=== PATIENT | female | born 1985 | race Caucasian/White ===

== ENCOUNTER 2016-05-18 07:06 | Day surgery (SDC) | payer OTHER ==
[2016-05-13 14:48] VITALS: BMI 32.5
--- NOTE | 2016-05-18 06:36 | HP ---
History & Physical Update - History History: No Change - Physical Physical: No Change - Assessment Assessment: No Change - Plan Plan: No Change
[~2016-05-18 07:06] MED LIST: IBUPROFEN 800 MG/8 ML IJ IVPB PRN; LACTATED RINGERS SOLUTION 1,000 ML IV SCH
[2016-05-18] MEDS ORDERED: SODIUM CHLORIDE 0.9% P/F 10 ML VIAL IJ ONE (07:57)
[2016-05-18] MEDS ORDERED: KETOROLAC TROMETHAMINE 30 MG/1 ML VIAL ONE (07:57)
[2016-05-18] MEDS ORDERED: ceFAZolin SODIUM 1 GM VIAL ONE (07:57)
[2016-05-18] MEDS ORDERED: DEXAMETHASONE SOD PHOSPHATE 4 MG/1 ML VIAL ONE (07:57)
[2016-05-18] MEDS ORDERED: SUCCINYLCHOLINE CHLORIDE 200 MG/10 ML VIAL ONE (07:58)
[2016-05-18] MEDS ORDERED: PHENYLEPHRINE HCL 10 MG/1 ML SINGLE DOSE VIAL ONE (07:58)
[2016-05-18] MEDS ORDERED: PROPOFOL 20 ML ONE ×2 (07:58)
[2016-05-18] MEDS ORDERED: MIDAZOLAM HCL 2 MG/2 ML SINGLE DOSE VIAL ONE (07:58)
[2016-05-18] MEDS ORDERED: ROCURONIUM BROMIDE 50 MG/5 ML VIAL ONE (07:58)
[2016-05-18] MEDS ORDERED: ePHEDrine SULFATE 50 MG/1 ML AMPULE ONE (07:59)
[2016-05-18] MEDS ORDERED: LIDOCAINE HCL 2% (20ML MULTI-DOSE VIAL) NR ONE (08:06)
[2016-05-18] MEDS ORDERED: DESFLURANE GAS 240 ML BOTTLE IH ONE (08:06)
[2016-05-18] MEDS ORDERED: ceFAZolin SODIUM 1 GM VIAL IVPB ONE (08:43)
[2016-05-18] MEDS ORDERED: ONDANSETRON 4 MG/2 ML VIAL IVPUSH PRN (09:11)
[2016-05-18] MEDS ORDERED: PROMETHAZINE HCL 25 MG/1 ML VIAL IVPUSH PRN (09:11)
[2016-05-18] MEDS ORDERED: LACTATED RINGERS SOLUTION 1,000 ML IV SCH (09:15)
[2016-05-18] MEDS ORDERED: NEOSTIGMINE METHYLSULFATE 0.5 MG/ML - 10 ML MDV ONE (09:40)
[2016-05-18] MEDS ORDERED: GLYCOPYRROLATE 0.2 MG/1 ML VIAL ONE (09:40)
[2016-05-18 12:10] VITALS: TEMP 97.6
[2016-05-18] MEDS ORDERED: oxyCODONE HCL 5 MG TABLET PO PRN (12:46)
[2016-05-18] MEDS ORDERED: oxyCODONE HCL 5 MG TABLET ONE (12:49)
--- NOTE | 2016-05-18 13:01 | OP ---
Operative Note - Note: Operative Date: 05/18/16 Pre-Operative Diagnosis: ovarian cyst. pelvic pain Operation: Robotic Laparoscopic bilateral ovarian cystectomy Findings: left corpus leuteal cyst right simple cyst Post-Operative Diagnosis: Same as Pre-op Surgeon: Ree Evans Compliance Representative: Leticia Carlos Anesthesia: General Specimens Removed: bilateral ovarian cyst Estimated Blood Loss (mls): 20 Operative Report Dictated: Yes
[2016-05-18 15:00] VITALS: BP 121/72; PULSE 53
--- NOTE | 2016-05-19 14:05 | PATH ---
Surgical Pathology Report Patient Name: LUNA BURNS [facility]. Rec. #: [id number] /Age/Gender: 1985 (Age: 30) / F Account: [id number] Location: [facility] SURGICAL Taken: 05/18/2016 Received: 05/18/2016 Reported: 05/19/2016 Physicians: Ree Evans M.D. Specimen(s) Received A: LEFT OVARIAN CYST B: RIGHT OVARIAN CYST Clinical History Ovarian cyst/pelvic pain Final Diagnosis A. OVARY, LEFT, CYSTECTOMY: BENIGN HEMORRHAGIC CYST WITH FEATURES OF LUTEINIZED FOLLICULAR CYST. B. OVARY, RIGHT, CYSTECTOMY: CONSISTENT WITH CORPUS LUTEUM CYST. Electronically Signed Varun Rocha M.D. Gross Description A. Received in formalin, labeled "left ovarian cyst" is a 3.5 x 1.5 x 0.3 cm schaeffer brown to red, irregular portion of soft tissue, consistent with a disrupted cystic structure. The specimen is serially sectioned and entirely submitted in 2 cassettes. B. Received in formalin, labeled "right ovarian cyst" a 1.1 x 0.8 x 0.3 cm pink-schaeffer, irregular portion of soft tissue, consistent with a disrupted cystic structure. The specimen is submitted in toto in one cassette. 05/18/201605/18/2016
--- NOTE | 2016-05-27 07:54 | OP ---
DATE OF OPERATION: 05/18/2016 PREOPERATIVE DIAGNOSIS: Ovarian cyst, pelvic pain. OPERATION: Robotic laparoscopic bilateral ovarian cystectomy. SURGEON: Danielle Evans MD SOFTWARE DEVELOPER CONSULTANT: Leticia Carlos MD PROCEDURE: Patient was taken to the operating room, placed in dorsal lithotomy position, prepped and draped in the usual sterile fashion. A time-out was performed in accordance with hospital regulations. Attention was then drawn to the umbilicus, where an 8-mm umbilical incision was made. Veress needle was inserted into the cavity. Approximately 3-4 L of CO2 was insufflated into the cavity. Veress needle was then removed, and an 8-mm trocar was inserted. Laparoscope and camera were attached. Visualization revealed bilateral ovarian cysts. Trocars were inserted, 2 on the left, 1 lower than then umbilicus and 1 higher. The airseal cannula was inserted in the upper abdomen. Two 8-mm trocars were inserted on the right 8 cm apart. Under direct visualization, an incision was then made and trocars were inserted without injury to the underlying viscera. The da Latha Robot was then side- docked to the patients abdomen and attached. Laparoscopic camera was then visualized and instruments were inserted. Bipolar grasper and EndoShears were then inserted. Ovarian cysts were grasped on the right, and EndoShears were then used to enter the cyst, and cystectomy was then performed. Cysts were then removed by direct blunt and sharp dissection. The same procedure was repeated on the right. The left appeared to have corpus luteal cyst, the right had a simple cyst. The same procedure was repeated on the right side. Cautery of the cysts was done, and the cysts were then removed from the ovary using direct sharp technique, and both cysts were then removed and submitted to Pathology. Hemostasis was achieved. All instruments were then removed. CO2 was removed from the abdomen. Incisions were then closed using 4-0 Biosyn in a subcuticular fashion. Wounds were washed and dressed. Patient tolerated the procedure well, was taken to Recovery in stable condition. DANIELLE EVANS M.D. [id number] MTDD
== END 2016-05-18 15:15 | disposition home or self-care (01) ==
LOC: JASU-SURG 07:06
PROVIDERS: ATTEND Obstetrics & Gynecology
PROC: 8E0W4CZ Robotic Assisted Procedure of Trunk Region, Percutaneous Endoscopic Approach (ICD-10-PCS; 2016-05-18)
PROC: 0UB24ZZ Excision of Bilateral Ovaries, Percutaneous Endoscopic Approach (ICD-10-PCS; principal; 2016-05-18 08:30)
DX: N83.291 Other ovarian cyst, right side (principal); N83.12 Corpus luteum cyst of left ovary
CPT/HCPCS: 58662; S2900; 36415; 82947; 84703; 86850; 86900; 86901; 88305-TC; 94760

== ENCOUNTER 2017-06-10 14:17 | Emergency (ER) | payer OTHER ==
--- NOTE | 2017-06-10 14:31 | PDOC ---
Rapid Medical Evaluation Time Seen by Provider: 06/10/17 14:30 Medical Evaluation: Allergies Allergy/AdvReac Type Severity Reaction Status Date / Time No Known Allergies Allergy Verified 12/14/15 07:09 06/10/17 14:31 31 year old female with history of IDDM and HTN with sudden onset of dizziness at 10am today. Vomiting in triage. Reports FS 98 this morning, has not re- checked since then. Denies pain other than toothache for which she took 2 tablets of Motrin this morning. V/s on arrival notable for: BP 167/116 (did take meds this morning) P 101 Fingerstick blood glucose Labs including CBC, CMP, acetone, VBG, serum (menstrual period "due today"), UA IVF Zofran 8mg IVPB To Main ED for further evaluation Discharge Disposition - Referrals Referrals: Danielle Alvarez MD [Primary Care Provider] - - Patient Instructions - Post Discharge Activity
[2017-06-10] MEDS ORDERED: SODIUM CHLORIDE 1,000 ML IV STA (14:33)
[2017-06-10] MEDS ORDERED: ONDANSETRON 4 MG/2 ML VIAL IVPB ONE (14:34)
[2017-06-10 14:36] VITALS: BMI 36.6
[2017-06-10 15:03] LABS: BASO % 0.7 % (0-2.0); EOS % 1.8 % (0-4.5); HEMATOCRIT 40.2 % (32.4-45.2); HEMOGLOBIN 12.4 GM/dL (10.7-15.3); LYMPH % 30.4 % (8-40); MCH 21.1 pg (25.7-33.7); MEAN PLT VOLUME 7.9 fl (7.5-11.1); MONO % 5.9 % (3.8-10.2); NEUT % 61.2 % (42.8-82.8); PLATELET COUNT 259 K/MM3 (134-434); RBC 5.91 M/mm3 (3.60-5.2); RDW 14.9 % (11.6-15.6); WHITE BLOOD COUNT 10.4 K/mm3 (4.0-10.0)
[2017-06-10 15:08] LABS: ADD RBC MORPHOLOGY YES
--- NOTE | 2017-06-10 15:33 | PDOC ---
History of Present Illness - General Chief Complaint: Lightheaded Stated Complaint: DIZZINESS Time Seen by Provider: 06/10/17 14:30 History Source: Patient Exam Limitations: No Limitations - History of Present Illness Initial Comments: CHIEF COMPLAINT: 31 y/o afebrile female with PMH IDDM, HTN c/o dizziness today. 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 She states it felt like the room was spinning around her. She states when she is dizzy she does feel nauseous. Her only other complaint is that she's had a toothache for the past few days and admits she needs a toothache. She denies f/c, cough, SCHILLNIG, changes in vision/hearing, CP , SOB, abd pain, v/d, dysuria. She did check her sugar today and it was 95. She has taken all of her medications today as well. Vital signs on arrival are notable for pulse of 106 and BP of 167/116. REVIEW OF SYSTEMS: GENERAL/CONSTITUTIONAL: No fever/chills. No weakness. No weight change. HEAD, EYES, EARS, NOSE AND THROAT: +left bottom toothache. No change in vision. No ear pain or discharge. No sore throat. CARDIOVASCULAR: No chest pain or shortness of breath. RESPIRATORY: No cough, wheezing, or hemoptysis. GASTROINTESTINAL: +nausea. GENITOURINARY: No dysuria, frequency, or change in urination. MUSCULOSKELETAL: No joint or muscle swelling or pain. No neck or back pain. SKIN: No rash or easy bruising. NEUROLOGIC: No headache, vertigo, loss of consciousness, or loss of sensation. PHYSICAL EXAM: GENERAL: The patient is awake, alert, and fully oriented, in no acute distress. She is well appearing and pleasant. HEAD: Normal with no signs of trauma. ENT: Pupils equal, round and reactive to light, extraocular movements intact, sclera anicteric, conjunctiva clear. No photophobia. No nystagmus. LUNGS: Clear to auscultation bilaterally. Normal excursion. No respiratory distress or use of accessory muscles. CV: RRR, S1/S2, no MRG. Cap refill < 2 sec. ABDOMEN: Soft, non-distended, non-tender even to deep palpation, no hepatomegaly or splenomegaly, no masses. EXTREMITIES: Normal range of motion, no edema. NEUROLOGICAL: Normal speech, normal gait. CN II-XII grossly intact. Dizziness reproduced with rapid head movement from side to side, worse when turned towards left side. SKIN: Warm, dry, normal turgor, no rashes or lesions noted. Past History - Past Medical History Allergies/Adverse Reactions: Allergies Allergy/AdvReac Type Severity Reaction Status Date / Time No Known Allergies Allergy Verified 06/10/17 14:36 Home Medications: Ambulatory Orders Insulin Glargine,Hum.rec.anlog [Lantus Solostar PEN -] 28 units SQ ACHS Lisinopril [Prinivil] 20 mg PO BID 12/14/15 Insulin Lispro [Humalog] 12 unit SQ BID 05/13/16 Cholecalciferol (Vitamin D3) [Vitamin D3] 50,000 unit PO WEEKLY 05/18/16 Ibuprofen [Motrin -] 600 mg PO QID PRN #28 tablet 05/18/16 Meloxicam [Mobic (Nf) -] 15 mg PO DAILY 05/18/16 Pramipexole Di-HCl [Mirapex] 0.25 mg PO BID 05/18/16 Topiramate 50 mg PO BID 05/18/16 COPD: No Diabetes: Yes HTN: Yes - Immunization History Immunization Up to Date: Yes - Suicide/Smoking/Psychosocial Hx Smoking History: Never smoked Have you smoked in the past 12 months: No Information on smoking cessation initiated: No Hx Alcohol Use: No Drug/Substance Use Hx: No Substance Use Type: None Hx Substance Use Treatment: No *Physical Exam - Vital Signs Last Vital Signs Temp Pulse Resp BP Pulse Ox 106 H 22 167/116 100 06/10/17 14:31 06/10/17 14:31 06/10/17 14:31 06/10/17 14:31 ED Treatment Course - LABORATORY CBC & Chemistry Diagram: 06/10/17 14:58 06/10/17 14:58 - ADDITIONAL ORDERS Additional order review: Laboratory Results 06/10/17 14:58 Serum , Qual Negative 06/10/17 14:58 RBC 5.91 H MCV 68.0 L MCHC 31.0 L RDW 14.9 MPV 7.9 Neutrophils % 61.2 Lymphocytes % 30.4 D Monocytes % 5.9 Eosinophils % 1.8 Basophils % 0.7 Medical Decision Making - Medical Decision Making A/P: 31 y/o afebrile female with dizziness today. patient has had 2 days of toothache. She is a business controller. Suspect vertigo but will check labs and EKG given her PMH. Plan is as follows: 1. EKG 2. Labs 3. PO Meclizine 4. UA 5. Serum Glucose - 385 Ordered IV fluids and 10 units of insulin Ordered 50mg of Meclizine The patient states she feels better...not dizzy anymore but her head feels "heavy". Will give 2nd bag of IV fluids and another 25mg of meclizine Will draw repeat CMP to check glucose level I am signing this patient out to my colleague: ARIC Ventura In brief, this patient is being seen in the ED for a chief complaint of: dizziness I have completed the initial assessment interview note and have ordered: labs, EKG, UA I have reviewed the following results: all Pending results are: repeat CMP Please call the PCP: Dr. Alvarez Plan for disposition is as follows: Please allow fluids to finish, check glucose level on repeat CMP and reassess patient status. *DC/Admit/Observation/Transfer Diagnosis at time of Disposition: Hyperglycemia, Dizziness, Vertigo - Referrals Referrals: Danielle Alvarez MD [Primary Care Provider] - - Patient Instructions - Post Discharge Activity
[2017-06-10 15:37] LABS: ALBUMIN 3.6 g/dl (3.4-5.0); ANION GAP 7 (8-16); BILIRUBIN,TOTAL 0.2 mg/dL (0.2-1.0); BLOOD UREA NITROGEN 13 mg/dL (7-18); CALCIUM 8.4 mg/dL (8.5-10.1); CHLORIDE 102 mmol/L (98-107); CO2 26 mmol/L (21-32); POTASSIUM 4.2 mmol/L (3.5-5.1); SGOT/AST 7 U/L (15-37); SGPT/ALT 23 U/L (12-78); SODIUM 135 mmol/L (136-145)
[2017-06-10 15:38] LABS: ALK PHOS 158 U/L (45-117)
[2017-06-10 15:41] LABS: GLUCOSE,RANDOM 385 mg/dL (74-106)
[2017-06-10] MEDS ORDERED: MECLIZINE HCL 25 MG TABLET (FP) PO ONE ×2 (15:50→17:53)
[2017-06-10 16:01] LABS: VENOUS PC02 37.3 mmHg (38-52); VENOUS PH 7.43 (7.32-7.42); VENOUS PO2 96.7 mmHg (28-48)
[2017-06-10] MEDS ORDERED: INSULIN REGULAR HUMAN 100 UNITS/ML *VIAL SQ ONE (16:01)
[2017-06-10] MEDS ORDERED: SODIUM CHLORIDE 250 ML IV ONE (16:02)
[2017-06-10] MEDS ORDERED: SODIUM CHLORIDE 250 ML IV STA ×3 (16:02→16:03)
[2017-06-10] MEDS ORDERED: ONDANSETRON 4 MG/2 ML VIAL ONE (16:37)
[2017-06-10] MEDS ORDERED: MECLIZINE HCL 25 MG TABLET (FP) ONE ×2 (16:37→17:54)
[2017-06-10] MEDS ORDERED: INSULIN REGULAR HUMAN 100 UNITS/ML *VIAL ONE (16:47)
[2017-06-10 17:08] LABS: URINE APPEARANCE CLEAR; URINE BILIRUBIN NEGATIVE (NEGATIVE); URINE BLOOD NEGATIVE (NEGATIVE); URINE COLOR COLORLESS; URINE GLUCOSE (UA) 3+ (NEGATIVE); URINE KETONE NEGATIVE (NEGATIVE); URINE LEUK ESTERASE NEGATIVE (NEGATIVE); URINE NITRITE NEGATIVE (NEGATIVE); URINE PROTEIN NEGATIVE (NEGATIVE); URINE UROBILINOGEN NEGATIVE mg/dL (0.2-1.0)
[2017-06-10] MEDS ORDERED: IBUPROFEN 100 MG/5 ML UNIT DOSE CUPS PO ONE (17:59)
[2017-06-10] MEDS ORDERED: IBUPROFEN 600 MG TABLET (FP) PO ONE (18:53)
[2017-06-10 19:18] VITALS: BP 154/94; PULSE 77; TEMP 98.7
--- NOTE | 2017-06-10 19:32 | PDOC ---
*Physical Exam - Vital Signs Last Vital Signs Temp Pulse Resp BP Pulse Ox 98.7 F 77 16 154/94 99 06/10/17 18:00 06/10/17 18:00 06/10/17 18:00 06/10/17 18:00 06/10/17 18:00 - Physical Exam General Appearance: Yes: Nourished, Appropriately Dressed. No: Apparent Distress Neurologic: positive: youth ministry director II-XII NML intact, Fully Oriented, Alert, Normal Mood/ Affect, Normal Response, Motor Strength 09/11 ED Treatment Course - LABORATORY CBC & Chemistry Diagram: 06/10/17 14:58 06/10/17 21:20 - ADDITIONAL ORDERS Additional order review: Laboratory Results 06/10/17 06/10/17 06/10/17 16:33 14:58 14:58 VBG pH 7.43 H POC VBG pCO2 37.3 L POC VBG pO2 96.7 H D Mixed VBG HCO3 24.4 Sodium Potassium Chloride Carbon Dioxide Anion Gap BUN Creatinine Creat Clearance w eGFR Random Glucose Calcium Total Bilirubin AST ALT Alkaline Phosphatase Total Protein Albumin Serum , Qual Urine Color Colorless Urine Appearance Clear Urine pH 6.0 Ur Specific [place] 1.024 Urine Protein Negative Urine Glucose (UA) 3+ H Urine Ketones Negative Urine Blood Negative Urine Nitrite Negative Urine Bilirubin Negative Urine Urobilinogen Negative Ur Leukocyte Esterase Negative Acetone, Qual Negative L 06/10/17 06/10/17 14:58 14:58 VBG pH POC VBG pCO2 POC VBG pO2 Mixed VBG HCO3 Sodium 135 L Potassium 4.2 Chloride 102 Carbon Dioxide 26 Anion Gap 7 L BUN 13 Creatinine 1.0 Creat Clearance w eGFR > 60 Random Glucose 385 H* Calcium 8.4 L Total Bilirubin 0.2 D AST 7 L ALT 23 Alkaline Phosphatase 158 H Total Protein 7.0 Albumin 3.6 Serum , Qual Negative Urine Color Urine Appearance Urine pH Ur Specific [place] Urine Protein Urine Glucose (UA) Urine Ketones Urine Blood Urine Nitrite Urine Bilirubin Urine Urobilinogen Ur Leukocyte Esterase Acetone, Qual 06/10/17 14:58 RBC 5.91 H MCV 68.0 L MCHC 31.0 L RDW 14.9 MPV 7.9 Neutrophils % 61.2 Lymphocytes % 30.4 D Monocytes % 5.9 Eosinophils % 1.8 Basophils % 0.7 - Medications Given in the ED: ED Medications Discontinued Medications Generic Name Dose Route Start Last Admin Trade Name Freq PRN Reason Stop Dose Admin Sodium Chloride 1,000 mls @ 1,000 mls/hr 06/10/17 14:33 06/10/17 16:37 Normal Saline - IV 06/10/17 15:32 1,000 mls/hr ASDIR STA Administration Sodium Chloride 250 mls @ 500 mls/hr 06/10/17 16:02 06/10/17 17:47 Normal Saline - IV 06/10/17 16:31 500 mls/hr NOW ONE Administration Sodium Chloride 250 mls @ 500 mls/hr 06/10/17 16:02 06/10/17 17:09 Normal Saline - IV 06/10/17 16:31 500 mls/hr ASDIR STA Administration Sodium Chloride 250 mls @ 500 mls/hr 06/10/17 16:03 06/10/17 17:47 Normal Saline - IV 06/10/17 16:32 500 mls/hr ASDIR STA Administration Sodium Chloride 250 mls @ 500 mls/hr 06/10/17 16:03 06/10/17 17:47 Normal Saline - IV 06/10/17 16:32 500 mls/hr ASDIR STA Administration Ibuprofen 600 mg 06/10/17 17:59 06/10/17 18:56 Motrin Oral Suspension - PO 06/10/17 18:00 600 mg ONCE ONE Administration Insulin Human Regular 10 units 06/10/17 16:01 06/10/17 16:50 Novolin R Vial *For Ivpush Or Iv Drip Only* SQ 06/10/17 16:02 10 unit ONCE ONE Administration Meclizine HCl 50 mg 06/10/17 15:50 06/10/17 16:38 Antivert - PO 06/10/17 15:51 50 mg ONCE ONE Administration Meclizine HCl 25 mg 06/10/17 17:53 06/10/17 18:12 Antivert - PO 06/10/17 17:54 25 mg ONCE ONE Administration Ondansetron HCl 8 mg 06/10/17 14:34 06/10/17 16:37 Zofran Injection IVPB 06/10/17 14:35 8 mg ONCE ONE Administration Medical Decision Making - Medical Decision Making 06/10/17 21:08 Sign out received from Alexa CORBETT. Pt. finished second bolus of fluids for an elevated blood glucose on presentation. Pt. reports the dizziness has subsided and reports that her head feels a little heavy. Repeat finger stick now shows a glucose of 118. Pt. is a business intelligence engineer. Will give work note and send home with rx of meclizine and zofran for symptomatic treatment. 06/10/17 22:29 No gap on repeat CMP *DC/Admit/Observation/Transfer Diagnosis at time of Disposition: Hyperglycemia, Dizziness, Vertigo - Discharge Dispostion Disposition: HOME Condition at time of disposition: Stable Admit: No - Prescriptions Prescriptions: Meclizine HCl 25 mg PO TID #21 tablet Ondansetron [Zofran Odt -] 4 mg SL TID #21 od.tablet - Referrals Referrals: Danielle Alvarez MD [Primary Care Provider] - - Patient Instructions Printed Discharge Instructions: Benign Paroxysmal Positional Vertigo Additional Instructions: You have vertigo. Please take meclizine 25 mg every 8 hours to help with the dizziness. If you feel nauseous you may take Zofran every 8 hours as well. The Bakari maneuver may help to correct your symptoms. Please drink plenty of fluids and get plenty of rest. Do not drive while you experience the vertigo as it can create unsafe conditions. You have been given a work note. Please follow-up with Dr. rhoades this week. Return to the emergency department if you have worsening dizziness, fevers, difficulty walking, or any changes in your symptoms. - Post Discharge Activity Forms/Work/School Notes: Back to Work
[2017-06-10 19:49] LABS: ANISOCYTOSIS 1+
[2017-06-10 19:50] LABS: PLATELET ESTIMATE ADEQUATE
[2017-06-10 22:05] LABS: ALBUMIN 3.3 g/dl (3.4-5.0); ANION GAP 7 (8-16); BLOOD UREA NITROGEN 11 mg/dL (7-18); CALCIUM 7.6 mg/dL (8.5-10.1); CHLORIDE 108 mmol/L (98-107); CO2 26 mmol/L (21-32); GLUCOSE,RANDOM 100 mg/dL (74-106); SODIUM 141 mmol/L (136-145)
[2017-06-10 22:08] LABS: ALK PHOS 134 U/L (45-117); BILIRUBIN,TOTAL 0.4 mg/dL (0.2-1.0); CREATININE 0.7 mg/dL (0.55-1.02); SGOT/AST 8 U/L (15-37); SGPT/ALT 22 U/L (12-78); TOT PROT 6.2 g/dl (6.4-8.2)
--- NOTE | 2017-06-11 10:06 | EKG ---
Test Reason : Blood Pressure : / mmHG Vent. Rate : 078 BPM Atrial Rate : 078 BPM P-R Int : 134 ms QRS Dur : 084 ms QT Int : 396 ms P-R-T Axes : 051 006 011 degrees QTc Int : 451 ms NORMAL SINUS RHYTHM POSSIBLE LEFT ATRIAL ENLARGEMENT LEFT VENTRICULAR HYPERTROPHY NONSPECIFIC T WAVE ABNORMALITY ABNORMAL ECG WHEN COMPARED WITH ECG OF 14-DEC-2015 07:32, VENT. RATE HAS DECREASED BY 48 BPM Confirmed by ROBBY THOMAS MD ([id number]) on 06/11/2017 10:06:17 AM Referred By: Confirmed By:ORBBY THOMAS MD
== END 2017-06-10 22:59 | disposition home or self-care (01) ==
LOC: JER 14:17
PROC: 3E0337Z Introduction of Electrolytic and Water Balance Substance into Peripheral Vein, Percutaneous Approach (ICD-10-PCS; principal; 2017-06-10)
PROC: 3E033GC Introduction of Other Therapeutic Substance into Peripheral Vein, Percutaneous Approach (ICD-10-PCS; 2017-06-10)
PROC: 3E013VG Introduction of Insulin into Subcutaneous Tissue, Percutaneous Approach (ICD-10-PCS; 2017-06-10)
DX: E11.65 Type 2 diabetes mellitus with hyperglycemia (principal); Z79.4 Long term (current) use of insulin; I10 Essential (primary) hypertension
CPT/HCPCS: 36415; 80053; 81003; 82009; 82803; 82962; 84703; 85025; 93005; 93010; 99284-25

== ENCOUNTER 2018-04-04 13:18 | Emergency (ER) | payer OTHER ==
[2018-04-04 13:27] VITALS: BP 172/99; PULSE 90; TEMP 98.2; BMI 36.6
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
[2018-04-04] MEDS ORDERED: CYCLOBENZAPRINE HCL 10 MG TABLET (FP) PO ONE (14:43)
[2018-04-04] MEDS ORDERED: KETOROLAC TROMETHAMINE 60 MG/2 ML VIAL IM ONE (14:43)
[2018-04-04] MEDS ORDERED: KETOROLAC TROMETHAMINE 60 MG/2 ML VIAL ONE (14:52)
[2018-04-04] MEDS ORDERED: CYCLOBENZAPRINE HCL 10 MG TABLET (FP) ONE (14:52)
[2018-04-04 15:09] LABS: URINE APPEARANCE CLEAR; URINE BILIRUBIN NEGATIVE (<2.0 mg/dL); URINE COLOR STRAW; URINE GLUCOSE (UA) 2+ (NEGATIVE); URINE KETONE NEGATIVE (NEGATIVE); URINE LEUK ESTERASE 1+ (NEGATIVE); URINE NITRITE NEGATIVE (NEGATIVE); URINE PROTEIN NEGATIVE (NEGATIVE); URINE UROBILINOGEN NEGATIVE mg/dL (0.2-1.0)
[2018-04-04 15:23] LABS: EPI CELLS RARE /HPF (FEW)
[2018-04-04 15:34] LABS: HCG,QUALITATIVE URINE Negative
[2018-04-04] MEDS ORDERED: diphenhydrAMINE HCL 25 MG CAPSULE (FP) PO ONE ×2 (15:44→15:49)
[2018-04-04] MEDS ORDERED: ONDANSETRON *ODT* 4 MG TABLET SL ONE (16:10)
[2018-04-04] MEDS ORDERED: ONDANSETRON *ODT* 4 MG TABLET ONE (16:17)
== END 2018-04-04 16:40 | disposition home or self-care (01) ==
LOC: JERFT 13:18
PROC: 3E0233Z Introduction of Anti-inflammatory into Muscle, Percutaneous Approach (ICD-10-PCS; principal; 2018-04-04)
DX: S13.4XXA Sprain of ligaments of cervical spine, initial encounter (principal); V49.9XXA Car occupant (driver) (passenger) injured in unspecified traffic accident, initial encounter; Y92.488 Other paved roadways as the place of occurrence of the external cause; Y93.89 Activity, other specified; Y99.8 Other external cause status
CPT/HCPCS: 81003; 81015; 84703; 96372; 99281-25; Q0162

== ENCOUNTER 2018-10-17 05:15 | Inpatient (IN) | payer OTHER | END 2018-10-19 10:05 | disposition home or self-care (01) | LOC: JSAMEDAYSX 05:15 → J3W 13:49 ==

== ENCOUNTER 2019-03-06 17:16 | Emergency (ER) | payer OTHER ==
[2019-03-06] MEDS ORDERED: DIPHTH,PERTUSS(ACELL),TET 0.5 ML DISP.SYRIN IM ONE ×2 (17:20→19:30)
--- NOTE | 2019-03-06 17:20 | PDOC ---
Rapid Medical Evaluation Time Seen by Provider: 03/06/19 17:19 Medical Evaluation: Allergies Allergy/AdvReac Type Severity Reaction Status Date / Time No Known Allergies Allergy Verified 10/17/18 06:52 03/06/19 17:19 HPI: Stepped on adams nail through boot today L foot denies possibility or PE: No gross deficits ORDERS: Boostrix 03/06/19 17:20 Discharge Disposition - Diagnosis Puncture wound of left foot - Referrals - Patient Instructions - Post Discharge Activity
[2019-03-06 17:29] VITALS: BP 169/101; PULSE 96; TEMP 98.7; BMI 29.2
--- NOTE | 2019-03-06 18:31 | PDOC ---
History of Present Illness - General Chief Complaint: Puncture Wound Stated Complaint: Needs Tetanus shot Time Seen by Provider: 03/06/19 17:19 History Source: Patient Exam Limitations: No Limitations - History of Present Illness Initial Comments: 03/06/19 18:33 Chief complaint: Foot injury Patient is a 33-year-old, diabetic, hypertension who stepped on a adams nail through her boot when getting off a bus. She pulled the nail out of her foot. Patient's tetanus is not up-to-date. GENERAL/CONSTITUTIONAL: No fever, weakness. dizziness HEAD, EYES, EARS, NOSE AND THROAT: No change in vision. No ear pain or discharge. No sore throat. CARDIOVASCULAR: No chest pain RESPIRATORY: No shortness of breath or cough GASTROINTESTINAL: No pain, nausea, vomiting, diarrhea or constipation GENITOURINARY: No dysuria MUSCULOSKELETAL: No neck or back pain SKIN: No rash, puncture wound NEUROLOGIC: No headache, vertigo, loss of consciousness, or loss of sensation. GENERAL: The patient is awake, alert, and fully oriented, in no acute distress. HEAD: Normal with no signs of trauma. EYES: Pupils equal, round and reactive to light, sclera anicteric, conjunctiva clear. ENT: pharynx: no erythema, no exudate, uvula midline NECK: supple CHEST: clear, nontender, rr ABD: soft, nontender BACK: no tenderness or signs of injury EXTREMITIES: Left foot with small puncture wound, no signs of infection, no tenderness, neurovascular intact. Rest of extremities, normal range of motion, no edema. NEUROLOGICAL: Normal speech, normal gait. SKIN: Warm, Dry Past History - Past Medical History Allergies/Adverse Reactions: Allergies Allergy/AdvReac Type Severity Reaction Status Date / Time No Known Allergies Allergy Verified 03/06/19 17:23 Home Medications: Ambulatory Orders Lisinopril [Prinivil] 20 mg PO BID 12/14/15 Acetaminophen [Tylenol -] 500 mg PO PRN PRN 10/13/18 Amlodipine Besylate 5 mg PO DAILY 10/13/18 Insulin Glargine,Hum.rec.anlog [Lantus Solostar PEN (NF)] 30 units SQ HS Insulin NPH Hum/Reg Insulin Hm [Novolin 70-30 Flexpen] 20 unit SQ BID 10/13/18 Docusate Sodium [Colace -] 100 mg PO TID #90 capsule 10/19/18 Oxycodone HCl/Acetaminophen [Percocet 5-325 mg Tablet] 1 - 2 tab PO Q4H PRN #20 tablet MDD 6 10/19/18 Ciprofloxacin HCl [Cipro] 500 mg PO BID #14 tablet 03/06/19 Anemia: No Asthma: No Cancer: No Cardiac Disorders: No CVA: No COPD: No CHF: No Dementia: No Diabetes: Yes GI Disorders: No Disorders: Yes (SEVERE UTI) HTN: Yes Hypercholesterolemia: No Liver Disease: No Seizures: No Thyroid Disease: No - Surgical History Abdominal Surgery: No Appendectomy: No Cardiac Surgery: No Cholecystectomy: No Lung Surgery: No Neurologic Surgery: No Orthopedic Surgery: No - Immunization History Immunization Up to Date: Yes - Psycho Social/Smoking Cessation Hx Smoking History: Never smoked Have you smoked in the past 12 months: No Hx Alcohol Use: No Drug/Substance Use Hx: No Substance Use Type: Alcohol Hx Substance Use Treatment: No *Physical Exam - Vital Signs Last Vital Signs Temp Pulse Resp BP Pulse Ox 98.7 F 96 H 16 169/101 H 99 03/06/19 17:23 03/06/19 17:23 03/06/19 17:23 03/06/19 17:23 03/06/19 17:23 Medical Decision Making - Medical Decision Making 03/06/19 18:35 33-year-old female with history of diabetes for 2 to 3 years, hypertension who stepped on a nail to her left foot, took it out. Patient needs tetanus, x-ray, will need Cipro to cover for Pseudomonas, patient has a industrial equipment wirer to follow-up with. No other medical issues today. X-ray shows no acute pathology Discussed issues, findings, results, applicable medications and treatments and follow-up. All these were understood and all questions were answered 03/06/19 19:14 03/06/19 22:45 Repeat blood pressure was 137/92 Discharge - Discharge Information Problems reviewed: Yes Clinical Impression/Diagnosis: Puncture wound of left foot Qualifiers: Encounter type: initial encounter Qualified Code(s): S91.332A - Puncture wound without foreign body, left foot, initial encounter Condition: Stable Disposition: HOME - Admission No - Additional Discharge Information Prescriptions: Ciprofloxacin HCl [Cipro] 500 mg PO BID #14 tablet - Follow up/Referral Referrals: Danielle Alvarez MD [Primary Care Provider] - - Patient Discharge Instructions Patient Printed Discharge Instructions: DI for Puncture Wound Additional Instructions: Take Cipro 1 tablet every 12 hours for 7 days monitor blood sugar and return to er if unable to control Clean with soap and water 2-3 times daily, apply bacitracin Have her reevaluated if redness, pus, fever or getting worse Followup with your industrial equipment wirer this week. It is very important as you are at high risk for infection - Post Discharge Activity
== END 2019-03-06 19:40 | disposition home or self-care (01) ==
LOC: JER 17:16 → JERFT 17:16
PROC: 3E0234Z Introduction of Serum, Toxoid and Vaccine into Muscle, Percutaneous Approach (ICD-10-PCS; principal; 2019-03-06)
DX: S91.332A Puncture wound without foreign body, left foot, initial encounter (principal); W45.0XXA Nail entering through skin, initial encounter; Y93.89 Activity, other specified; Y92.811 Bus as the place of occurrence of the external cause; Y99.8 Other external cause status; I10 Essential (primary) hypertension; E10.9 Type 1 diabetes mellitus without complications; Z79.4 Long term (current) use of insulin
CPT/HCPCS: 73630-TC-LT; 90715; 99281-25

== ENCOUNTER 2023-05-18 09:56 | Emergency (ER) | payer OTHER ==
[2023-05-18 10:14] VITALS: BMI 25.9
[2023-05-18] MEDS ORDERED: ACETAMINOPHEN 500 MG TABLET (FP) PO ONE (11:27)
[2023-05-18] MEDS ORDERED: SODIUM CHLORIDE 0.9% 500 ML INFUS.BAG IV ONE (11:27)
[2023-05-18] MEDS ORDERED: ACETAMINOPHEN 1000 MG/100 ML BAG IVPB ONE (12:31)
[2023-05-18] MEDS ORDERED: METOCLOPRAMIDE HCL INJECTION 10 MG/2 ML VIAL IVPB ONE (12:31)
[2023-05-18] MEDS ORDERED: ACETAMINOPHEN INJECTION 100 ML IVPB ONE (12:32)
[2023-05-18] MEDS ORDERED: METOCLOPRAMIDE HCL INJECTION 10 MG/2 ML VIAL ONE (12:32)
[2023-05-18] MEDS ORDERED: SODIUM CHLORIDE 1,000 ML IV STA (12:36)
[2023-05-18 13:20] LABS: VENOUS BASE EXCESS 1.2 mmol/L (-2-2); VENOUS O2 SATURATION 87.5 % (70-80); VENOUS PCO2 43.9 mmHg (38-52); VENOUS PH 7.396 (7.310-7.410)
[2023-05-18 13:23] LABS: BASO % 0.8 % (0-2.0); EOS % 1.5 % (0-4.5); HEMATOCRIT 40.1 % (32.4-45.2); HEMOGLOBIN 12.6 GM/dL (10.7-15.3); LYMPH % 27.3 % (8-40); MCH 22.4 pg (25.7-33.7); MCHC 31.4 g/dl (32.0-36.0); MEAN CELL VOLUME 71.2 fl (80-96); MEAN PLT VOLUME 7.6 fl (7.5-11.1); MONO % 6.6 % (3.8-10.2); NEUT % 63.8 % (42.8-82.8); PLATELET COUNT 344 10^3/uL (134-434); RBC 5.63 M/mm3 (3.60-5.2); RDW 15.3 % (11.6-15.6)
[2023-05-18 13:49] LABS: POTASSIUM 3.9 mmol/L (3.5-5.1)
[2023-05-18 13:52] LABS: ALBUMIN 4.1 g/dl (3.4-5.0); BLOOD UREA NITROGEN 16.4 mg/dL (7-18); MAGNESIUM 1.8 mg/dL (1.8-2.4)
[2023-05-18 13:55] LABS: CREATININE 0.8 mg/dL (0.55-1.3)
[2023-05-18 13:56] LABS: BILIRUBIN,TOTAL 0.3 mg/dL (0.2-1); TOT PROT 7.6 g/dl (6.4-8.2)
[2023-05-18 15:24] VITALS: BP 127/80; PULSE 75; RESP 20; TEMP 98.5
== END 2023-05-18 17:36 | disposition home or self-care (01) ==
LOC: JER 09:56
PROC: 3E033NZ Introduction of Analgesics, Hypnotics, Sedatives into Peripheral Vein, Percutaneous Approach (ICD-10-PCS; principal; 2023-05-18)
PROC: 3E033GC Introduction of Other Therapeutic Substance into Peripheral Vein, Percutaneous Approach (ICD-10-PCS; 2023-05-18)
PROC: 3E0337Z Introduction of Electrolytic and Water Balance Substance into Peripheral Vein, Percutaneous Approach (ICD-10-PCS; 2023-05-18)
DX: M54.2 Cervicalgia (principal); R53.1 Weakness; R53.81 Other malaise; Z20.822 Contact with and (suspected) exposure to COVID-19
CPT/HCPCS: 0241U-QW; 36415; 70450-TC; 72125-TC; 80053; 82803; 82962; 83605; 83735; 84443; 84484; 84703; 85025; 93005; 93010; 96361; 96374; 96375; 99285-25

== ENCOUNTER 2024-02-24 12:59 | Emergency (ER) | payer OTHER ==
[2024-02-24 13:08] VITALS: BP 123/88; PULSE 87; RESP 20; TEMP 98.2; BMI 26.9
[2024-02-24] MEDS ORDERED: KETOROLAC TROMETHAMINE 30 MG/1 ML VIAL ONE (14:02)
[2024-02-24] MEDS: KETOROLAC TROMETHAMINE 30 MG/1 ML VIAL IM ONE (14:07)
[2024-02-24 16:21] LABS: HIV INTERPRETATION NEGATIVE (NEGATIVE)
== END 2024-02-24 14:33 | disposition left against medical advice (07) ==
LOC: JERFT 12:59
PROC: 3E0133Z Introduction of Anti-inflammatory into Subcutaneous Tissue, Percutaneous Approach (ICD-10-PCS; principal; 2024-02-24)
DX: R07.89 Other chest pain (principal); W50.0XXA Accidental hit or strike by another person, initial encounter; Y93.6A Activity, physical games generally associated with school recess, summer camp and children
CPT/HCPCS: 36415; 71046-TC-FY; 71101-TC-LT-FY; 86803; 87389; 99284-25

== ENCOUNTER 2024-03-28 21:16 | Emergency (ER) | payer OTHER ==
[2024-03-28 21:28] VITALS: TEMP 98.1; BMI 25.6
[2024-03-28 22:53] LABS: BASO % 0.7 % (0-2.0); EOS % 1.3 % (0-4.5); HEMATOCRIT 36.6 % (32.4-45.2); HEMOGLOBIN 11.6 GM/dL (10.7-15.3); MCH 22.4 pg (25.7-33.7); MCHC 31.9 g/dl (32.0-36.0); MEAN CELL VOLUME 70.4 fl (80-96); MEAN PLT VOLUME 7.6 fl (7.5-11.1); MONO % 6.2 % (3.8-10.2); NEUT % 66.8 % (42.8-82.8); PLATELET COUNT 271 10^3/uL (134-434); RBC 5.19 M/mm3 (3.60-5.2); RDW 14.2 % (11.6-15.6); WHITE BLOOD COUNT 9.4 K/mm3 (4.0-10.0)
[2024-03-28 23:00] LABS: PROTHROMBIN TIME (PATIENT) 11.5 SEC (9.7-13.0)
[2024-03-28 23:02] LABS: ACTIVATED PTT 24.8 SECONDS (25.2-36.5)
[2024-03-28] MEDS: SODIUM CHLORIDE 1,000 ML IV SCH (23:49)
[2024-03-28 23:55] LABS: ALBUMIN 3.6 g/dl (3.4-5.0); CALCIUM 8.6 mg/dL (8.5-10.1)
[2024-03-28 23:56] LABS: BLOOD UREA NITROGEN 19.5 mg/dL (7-18); CO2 24 mmol/L (21-32); GLUCOSE,RANDOM 112 mg/dL (74-106)
[2024-03-28 23:58] LABS: SGPT/ALT 22 U/L (13-61)
[2024-03-28 23:59] LABS: ANION GAP 14 mmol/L (4-13); CHLORIDE 106 mmol/L (98-107); LDL CHOLESTEROL (ONLY SJRH) 65 mg/dL (5-100); POTASSIUM 4.3 mmol/L (3.5-5.1); SGOT/AST 28 U/L (15-37); SODIUM 143 mmol/L (136-145)
[2024-03-29] LABS: TOT PROT 6.5 g/dl (6.4-8.2)
[2024-03-29 00:01] LABS: ALK PHOS 116 U/L (45-117)
[2024-03-29 00:02] LABS: HDL CHOLESTEROL 45 mg/dL (40-60)
[2024-03-29 00:22] LABS: BILIRUBIN,TOTAL 0.4 mg/dL (0.2-1)
[2024-03-29 00:37] VITALS: BP 115/80; PULSE 79; RESP 18
[2024-03-29] MEDS ORDERED: ALBUTEROL SO4 0.083% IH SOL 2.5 MG/3 ML VIAL.NEB. NEB SCH (00:45)
[2024-03-29 01:25] LABS: URINE COLOR YELLOW
[2024-03-29 01:26] LABS: URINE APPEARANCE CLEAR; URINE BILIRUBIN NEGATIVE (NEGATIVE); URINE GLUCOSE (UA) 250 (NEGATIVE); URINE KETONE NEGATIVE (NEGATIVE)
[2024-03-29 01:27] LABS: URINE LEUK ESTERASE NEGATIVE (NEGATIVE); URINE NITRITE NEGATIVE (NEGATIVE); URINE PROTEIN NEGATIVE (NEGATIVE); URINE UROBILINOGEN 0.2 mg/dL (0.2-1.0)
[2024-03-29 01:38] LABS: CHOLESTEROL 117 mg/dL (50-200)
== END 2024-03-29 01:51 | disposition home or self-care (01) ==
LOC: JER 21:16
DX: R20.2 Paresthesia of skin (principal); R20.0 Anesthesia of skin; R29.810 Facial weakness
CPT/HCPCS: 36415; 70450-TC; 70496-TC; 70498-TC; 80053; 80061; 81003; 82550; 82962; 83036; 84484; 84703; 85025; 85610; 85730; 86850; 86900; 86901; 93005; 93010; 99291

== ENCOUNTER 2024-04-24 04:12 | Day surgery (SDC) | payer OTHER ==
[2024-04-21 13:24] VITALS: BMI 26.5
[2024-04-24] MEDS ORDERED: ROCURONIUM BROMIDE 50 MG/5 ML SYRINGE ONE (10:12)
[2024-04-24] MEDS ORDERED: LIDOCAINE HCL 2% 100 MG/5 ML DISP.SYRIN ONE (10:12)
[2024-04-24] MEDS ORDERED: MIDAZOLAM HCL 2 MG/2 ML SINGLE DOSE VIAL ONE (10:12)
[2024-04-24] MEDS ORDERED: SUCCINYLCHOLINE CHLORIDE 200 MG/10 ML SYRINGE ONE (10:12)
[2024-04-24] MEDS ORDERED: PROPOFOL 20 ML ONE ×2 (10:12→10:56)
[2024-04-24] MEDS ORDERED: CEFAZOLIN 2 GM in DEXTROSE 5%-WATER - 100 ML IVPB ONE (10:15)
[2024-04-24] MEDS ORDERED: DEXAMETHASONE SOD PHOSPHATE 4 MG/1 ML VIAL ONE (11:07)
[2024-04-24] MEDS ORDERED: ceFAZolin SODIUM 1 GM VIAL ONE (11:07)
[2024-04-24] MEDS ORDERED: ONDANSETRON 4 MG/2 ML VIAL ONE (11:07)
[2024-04-24] MEDS ORDERED: KETOROLAC TROMETHAMINE 30 MG/1 ML VIAL ONE (11:07)
[2024-04-24] MEDS: ceFAZolin SODIUM 1 GM VIAL IVPB ONE (11:10)
[2024-04-24] MEDS ORDERED: NEOSTIGMINE METHYLSULFATE 0.5 MG/1 ML - 10 ML MDV ONE (11:52)
[2024-04-24] MEDS ORDERED: GLYCOPYRROLATE 0.2 MG/1 ML VIAL ONE (11:52)
[2024-04-24] MEDS ORDERED: ONDANSETRON 4 MG/2 ML VIAL IVPUSH PRN (13:06)
[2024-04-24] MEDS ORDERED: oxyCODONE HCL 5 MG TABLET PO PRN (13:06)
[2024-04-24] MEDS ORDERED: LACTATED RINGERS SOLUTION 1,000 ML IV SCH (13:15)
[2024-04-24 16:32] VITALS: BP 107/60; PULSE 74; RESP 18; TEMP 98
== END 2024-04-24 16:30 | disposition home or self-care (01) ==
LOC: JASU-SURG 04:12
PROVIDERS: ATTEND Obstetrics & Gynecology
PROC: 0UPD7HZ Removal of Contraceptive Device from Uterus and Cervix, Via Natural or Artificial Opening (ICD-10-PCS; 2024-04-24)
PROC: 0UN98ZZ Release Uterus, Via Natural or Artificial Opening Endoscopic (ICD-10-PCS; 2024-04-24)
PROC: 0UT74ZZ Resection of Bilateral Fallopian Tubes, Percutaneous Endoscopic Approach (ICD-10-PCS; principal; 2024-04-24 10:45)
PROC: 0UPD8HZ Removal of Contraceptive Device from Uterus and Cervix, Via Natural or Artificial Opening Endoscopic (ICD-10-PCS; 2024-04-24 10:45)
PROC: 0UT74ZZ Resection of Bilateral Fallopian Tubes, Percutaneous Endoscopic Approach (ICD-10-PCS; 2024-04-24 10:45)
PROC: 8E0W4CZ Robotic Assisted Procedure of Trunk Region, Percutaneous Endoscopic Approach (ICD-10-PCS; 2024-04-24 10:45)
DX: Z30.2 Encounter for sterilization (principal); T83.89XA Other specified complication of genitourinary prosthetic devices, implants and grafts, initial encounter; Y76.1 Therapeutic (nonsurgical) and rehabilitative obstetric and gynecological devices associated with adverse incidents; Y92.89 Other specified places as the place of occurrence of the external cause
CPT/HCPCS: 58559; 58562; 58661; S2900; 82962; 88300-TC; 88302-TC; 88305-TC; 94760